=== PATIENT | male | born 1985 | race Caucasian/White ===

== ENCOUNTER 2016-09-29 10:40 | Emergency (ER) | payer SELFPAY ==
[2016-09-29] MEDS ORDERED: Ketorolac 60 MG/2 ML SDV IM ONE (11:07)
--- NOTE | 2016-09-29 11:09 | EDM.PDOC ---
ED HPI GENERAL MEDICAL PROBLEM - General Chief Complaint: Back Pain or Injury Stated Complaint: BACK PAIN Time Seen by Provider: 09/29/16 11:08 Source of Information: Reports: Patient - History of Present Illness INITIAL COMMENTS - FREE TEXT/NARRATIVE: HISTORY AND PHYSICAL: History of present illness: [] Patient presents with low back pain after slipping on some gravel of local gas station he fell flat on his back he now complains of low back pain 8/10 radiating down his right leg no footdrop saddle anesthesia bowel or urine symptoms Denies head injury or loss of consciousness no fever nausea vomiting chills sweats Review of systems: As per history of present illness and below otherwise all systems reviewed and negative. Past medical history: As per history of present illness and as reviewed below otherwise noncontributory. Surgical history: As per history of present illness and as reviewed below otherwise noncontributory. Social history: No reported history of drug or alcohol abuse. Family history: As per history of present illness and as reviewed below otherwise noncontributory. Physical exam: HEENT: Atraumatic, normocephalic, pupils reactive, negative for conjunctival pallor or scleral icterus, mucous membranes moist, throat clear, neck supple, nontender, trachea midline. Lungs: Clear to auscultation, breath sounds equal bilaterally, chest nontender. Heart: S1S2, regular, negative for clicks, rubs, or JVD. Abdomen: Soft, nondistended, nontender. Negative for masses or hepatosplenomegaly. Negative for costovertebral tenderness. Pelvis: Stable nontender. Genitourinary: Deferred. Rectal: Deferred. Extremities: Atraumatic, negative for cords or calf pain. Neurovascular unremarkable. Straight leg raise to 30 does not increase radiculopathy Neuro: Awake, alert, oriented. Cranial nerves II through XII unremarkable. Cerebellum unremarkable. Motor and sensory unremarkable throughout. Exam nonfocal. No footdrop or saddle anesthesia Diagnostics: [] Lumbar spine 3 views Therapeutics: [] Toradol 60 IM Tramadol 50 mg by mouth 3 times a day when necessary Ibuprofen Ice or heat whichever benefits Impression: [] low back pain Paraspinous muscle spasm Definitive disposition and diagnosis as appropriate pending reevaluation and review of above. Lower Back Pain Score (Numeric/FACES): 8 - Related Data Allergies Allergy/AdvReac Type Severity Reaction Status Date / Time No Known Allergies Allergy Verified 09/29/16 11:00 Home Meds: Home Meds . [No Known Home Meds] 09/29/16 [History] Past Medical History - Past Health History Medical/Surgical History: Denies Medical/Surgical History - Infectious Disease History Infectious Disease History: Reports: Chicken Pox Social & Family History - Family History Family Medical History: Noncontributory - Tobacco Use Smoking Status *Q: Current Every Day Smoker Years of Tobacco use: 15 Packs/Tins Daily: 0.5 - Caffeine Use Caffeine Use: Reports: Coffee, Energy Drinks, Soda Caffeine Use Comment: 1 drink each/day - Recreational Drug Use Recreational Drug Use: No ED ROS GENERAL - Review of Systems Review Of Systems: ROS reveals no pertinent complaints other than HPI. ED EXAM, GENERAL - Physical Exam Exam: See Below Course - Vital Signs Last Recorded V/S: Last Vital Signs Temp 36.3 C 09/29/16 10:56 Pulse 100 09/29/16 10:56 Resp 19 09/29/16 10:56 BP 133/73 09/29/16 10:56 Pulse Ox 96 09/29/16 10:56 - Orders/Labs/Meds Orders: Active Orders 24 hr Category Date Time Status Lumbar Spine 2 or 3V [CR] Stat Exams 09/29/16 11:07 Taken Meds: Medications Discontinued Medications Generic Name Dose Route Start Last Admin Trade Name Mark PRN Reason Stop Dose Admin Ketorolac Tromethamine 60 mg 09/29/16 11:07 Toradol IM 09/29/16 11:08 ONETIME ONE Departure - Departure Time of Disposition: 12:06 Disposition: Home, Self-Care 01 Condition: good Clinical Impression: Spasm of lumbar paraspinous muscle, Low back pain - Discharge Information Forms: ED Department Discharge Additional Instructions: Medication as prescribed Ibuprofen 400 mg 3 times daily 7-10 days Ice 20 minute intervals for the first 48 hours at least 3 times daily After 48 hours ice or heat which ever gains most benefit, again 3 times daily 7- 10 days If symptoms persist or worsen Followup with primary care in 2 weeks [facility] - Primary [facility] [address] [place] [id number] The following information is given to patients seen in the emergency department who are being discharged to home. This information is to outline your options for follow-up care. We provide all patients seen in our emergency department with a follow-up referral. The need for follow-up, as well as the timing and circumstances, are variable depending upon the specifics of your emergency department visit. If you don't have a primary care physician on staff, we will provide you with a referral. We always advise you to contact your personal physician following an emergency department visit to inform them of the circumstance of the visit and for follow-up with them and/or the need for any referrals to a consulting specialist. The emergency department will also refer you to a specialist when appropriate. This referral assures that you have the opportunity for follow-up care with a specialist. All of these measure are taken in an effort to provide you with optimal care, which includes your follow-up. Under all circumstances we always encourage you to contact your private physician who remains a resource for coordinating your care. When calling for follow-up care, please make the office aware that this follow-up is from your recent emergency room visit. If for any reason you are refused follow-up, please contact the [facility] emergency department at and asked to speak to the emergency department charge nurse. - My Orders Last 24 Hours: My Active Orders 09/29/16 11:07 Lumbar Spine 2 or 3V [CR] Stat - Assessment/Plan Last 24 Hours: My Active Orders 09/29/16 11:07 Lumbar Spine 2 or 3V [CR] Stat
[2016-09-29 12:21] VITALS: BP 140/80
--- NOTE | 2016-09-29 12:23 | CR ---
EXAM DATE: 09/29/16 PATIENT'S AGE: 31 Patient: ANDIE GARCIA Facility: [place], [place] Site . Site : 1985 Study: XRay Spine Lumbar [id number]/2/2017 11:43:10 AM Ordering Physician: Agnieszka Pickering Final Report: Indication: Pain after fall. Technique: Three views. Impression: Transitional anatomy with sacralization L5. No fracture. Mild levoscoliosis centered at L2. Sacroiliac joints and visualized pelvis appear unremarkable. Dictated by Rudy Dave MD @ Sep 29 2016 12:03PM (Electronic Signature) Report Signed by Proxy. ANASTACIA
== END 2016-09-29 12:36 | disposition home or self-care (01) ==
LOC: MW.ED 10:40
DX: M62.830 Muscle spasm of back (principal); F17.210 Nicotine dependence, cigarettes, uncomplicated
CPT/HCPCS: 72100; 96372; 99283; J1885